=== PATIENT | female | born 1950 | race African-American/Black ===

== ENCOUNTER 2017-02-26 13:41 | Emergency (ER) | payer MEDICARE, OTHER ==
[~2017-02-26] VITALS: Ht 152.4 cm; Wt 76.2 kg
[~2017-02-26 13:41] MED LIST: ALBUTEROL SULF8.5 GM INH; ARIMIDEX1 MG PO; AZITHROMYCIN250 MG ORAL; BUSPAR10 MG PO; DEXAMETHASONE4 M1 PO; GABAPENTIN300 MG/61 ORAL; HYDROCHLOROTH12.5 M2 ORAL; LEVAQUIN500 MG ORAL; METRONIDAZOLE500 MG ORAL; NORCO 5-325 TA1 EACH ORAL; NORCO 5-325 TA1 EACH PO; NORCO1 EA ORAL; ONDANSETRON ODT4 MG ORAL; PROMETHAZINE-C118 M1 ORAL; QUETIAPINE FUM200 MG PO; QUETIAPINE FUM300 MG PO; RANITIDINE HCL150 MG ORAL; SEROQUEL50 MG ORAL; VICODIN 5-5001 EACH PO; ZOFRAN ODT4 MG ORAL; ZOFRAN4 MG ORAL
[2017-02-26 14:02] VITALS: BP 152/72
[2017-02-26] MEDS ORDERED: OMEPRAZOLE20 M2 ORAL (14:14)
[2017-02-26] MEDS ORDERED: IBUPROFEN200 MG ORAL (14:14)
[2017-02-26] MEDS ORDERED: LYRICA75 M1 ORAL (14:14)
[2017-02-26] MEDS ORDERED: Norco 5mg/325mg tab ORAL ONE (14:30)
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
[2017-02-26] MEDS ORDERED: IBUPROFEN600 MG ORAL (15:17)
[2017-02-26 15:33] VITALS: BP 148/76
[2017-02-26 15:34] VITALS: BP 152/72
--- NOTE | 2017-02-26 16:56 | Diagnostic Imaging Report ---
Indication: PAIN Technique: 3 views of the right shoulder Comparison: none Findings: No acute fractures. No dislocations. Joint spaces are preserved. Slight irregularity of the greater tuberosity is probably degenerative in nature Impression:No acute process
== END 2017-02-26 15:35 | disposition home or self-care (01) ==
LOC: EMR 14:49
DX: S40.011A Contusion of right shoulder, initial encounter (principal); W23.0XXA Caught, crushed, jammed, or pinched between moving objects, initial encounter; Z88.0 Allergy status to penicillin; Z85.3 Personal history of malignant neoplasm of breast; Z90.12 Acquired absence of left breast and nipple
CPT/HCPCS: 29240; 99283

== ENCOUNTER 2017-03-27 13:07 | Emergency (ER) | payer MEDICARE, OTHER ==
[~2017-03-27] VITALS: Ht 152.4 cm; Wt 76.2 kg
[~2017-03-27 13:07] MED LIST changes: +IBUPROFEN200 MG ORAL; +IBUPROFEN600 MG ORAL; +LYRICA75 M1 ORAL; +OMEPRAZOLE20 M2 ORAL
[2017-03-27 13:25] VITALS: BP 142/72
[2017-03-27] MEDS ORDERED: IBUPROFEN600 MG ORAL (13:30)
[2017-03-27] MEDS ORDERED: TRAMADOL HCL50 MG ORAL (13:30)
[2017-03-27 13:40] VITALS: BP 142/72
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
== END 2017-03-27 13:40 | disposition home or self-care (01) ==
LOC: EMR 13:31
DX: S46.911A Strain of unspecified muscle, fascia and tendon at shoulder and upper arm level, right arm, initial encounter (principal); W23.0XXA Caught, crushed, jammed, or pinched between moving objects, initial encounter; Y92.811 Bus as the place of occurrence of the external cause; Z85.3 Personal history of malignant neoplasm of breast; Z90.12 Acquired absence of left breast and nipple
CPT/HCPCS: 29240; 99284

== ENCOUNTER → 2019-06-30 | Outpatient (CLI) | payer MEDICARE, OTHER ==
[~2019-06-30] MED LIST changes: +TRAMADOL HCL50 MG ORAL
--- NOTE | 2019-06-30 11:32 | Diagnostic Imaging Report ---
Indication: Back pain. Radiculopathy symptoms Technique: Continuous helical transaxial imaging of the lumbar spine was obtained. No IV contrast was administered. Coronal 2-D reformats were also obtained. Study obtained in a Siemens sensation [address] Total Dose length Product (DLP): 405.[address] Dose Index Volume (CTDIvol): 14.71 mGy Comparison: None Findings: MRI of the lumbar spine should be obtained if there is no contraindication. CT evaluation of radiculopathy is inherently limited. L1-2: Endplate osteophytes and hypertrophied facets demonstrated at this level. There is some narrowing of the neural foramen demonstrated. L2-3: There is mild narrowing of intervertebral disc and vacuum phenomena. Hypertrophied facets and ligamentum flavum noted. There is likely some degree of foraminal stenosis. No obvious central stenosis appreciated. L3-4: Disc narrowing, osteophyte formation involving the endplates and hypertrophied facets and ligamentum flavum are demonstrated. There is likely some narrowing of the neural foramen. No obvious central stenosis. L4-5: There is a mild anterolisthesis at this level. Facet arthropathy is moderate to severe at this level with hypertrophy and subchondral irregularity and vacuum phenomena. There is suspicion of central spinal stenosis and narrowing of the lateral recess. There is suspicion of moderate bilateral foraminal stenosis, possibly severe. Again MR would be helpful. L5-S1: Vacuum phenomena noted within the intervertebral discs. There is no obvious central stenosis. There is probable narrowing of the neural foramen bilaterally. Aorta is moderately calcified. IMPRESSION: Suggestion of significant spinal stenosis at L4-5 secondary to a combination of factors including degenerative disc disease, facet arthropathy and ligamentum flavum hypertrophy associated with mild anterolisthesis. Suspicion of moderate bilateral foraminal stenosis. Recommend confirmation with MRI unless there is contraindication. Suggestion of multilevel foraminal stenosis due to facet arthropathy. Other details regarding degenerative spondyloarthropathy as above. Atherosclerotic vascular disease The CT scanner at [facility] is accredited by the [employer] and the scans are performed using dose optimization techniques as appropriate to a performed exam including Automatic Exposure control.
== END | disposition home or self-care (01) ==
LOC: CAT 10:22
DX: M54.16 Radiculopathy, lumbar region (principal); M48.061 Spinal stenosis, lumbar region without neurogenic claudication
CPT/HCPCS: 72131